=== PATIENT | male | born 1950 | race Caucasian/White ===

== ENCOUNTER 2019-11-20 06:55 | Emergency (ER) | payer OTHER ==
[~2019-11-20] VITALS: Ht 167.6 cm; Wt 61.2 kg
[2019-11-20] MEDS ORDERED: ATORVASTATIN CA20 MG PO (07:31)
[2019-11-20 07:32] LABS: ABSOLUTE NEUTROPHILS 4.8 thou/uL (1.4-8.2); BASOPHILS 0.5 % (0.0-2.0); EOSINOPHILS 0.9 % (0.0-3.0); HEMATOCRIT 44.4 % (42.0-52.0); HEMOGLOBIN 14.5 gm/dL (14.0-18.0); LYMPHOCYTES 17.2 % (24.0-44.0); MCH 28.9 pg (26.0-34.0); MCHC 32.6 g/dL (28.0-37.0); MCV 88.7 fL (80.0-100.0); PLATELET COUNT 136 thou/uL (150-400); POLYS 70.4 % (36.0-66.0); RDW 14.9 % (10.5-14.5); WBC 6.8 thou/uL (4.0-11.0)
[2019-11-20] MEDS ORDERED: SPIRONOLACTONE25 MG PO (07:32)
[2019-11-20 07:35] LABS: CALCIUM 9.7 mg/dL (8.5-10.1)
[2019-11-20 07:41] LABS: ALBUMIN 4.5 g/dL (3.4-5.0); DIRECT BILIRUBIN 0.3 mg/dL (<0.1-0.2); TOTAL BILIRUBIN 0.7 mg/dL (<0.1-1.0); TOTAL PROTEIN 8.3 g/dL (6.4-8.2)
[2019-11-20 08:27] VITALS: BP 105/59
== END 2019-11-20 08:32 | disposition home or self-care (01) ==
LOC: ER 06:55
PROVIDERS: Emergency Medicine
DX: K80.80 Other cholelithiasis without obstruction (principal); R10.11 Right upper quadrant pain